=== PATIENT | male | born 1985 | race Caucasian/White ===

== ENCOUNTER 2018-12-15 19:48 | Emergency (ER) | payer BC ==
[2018-12-15 20:16] VITALS: BP 126/70
--- NOTE | 2018-12-15 21:44 | ER Document Report ---
ED Medical Screen (RME) - General Chief Complaint: Abscess Stated Complaint: NECK PAIN Time Seen by Provider: 12/15/18 21:41 Notes: Patient is a 33-year-old male who presents to the emergency department with a chief complaint of abscess to the left clavicle. Patient reports he has had a history of multiple cysts that needed to be removed. 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 Patient states his Tdap is not up-to-date. Patient states the abscess developed about 1 week ago and started out like a infected hair. Patient reports significant pain to the area. Patient is a heart transplant patient that occurred 16 years ago. Patient denies diabetes. Patient states he normally has these cut open and placed on Keflex for 10 days. TRAVEL OUTSIDE OF THE [place] IN LAST 30 DAYS: No - Related Data Allergies/Adverse Reactions: clarithromycin [From Biaxin] Allergy (Verified 12/15/18 21:40) codeine Allergy (Verified 12/15/18 21:40) NSAIDS (Non-Steroidal Anti-Inflamma Allergy (Verified 12/15/18 21:40) prochlorperazine [From Compazine] Allergy (Verified 12/15/18 21:39) Past Medical History - Social History Frequency of alcohol use: Rare Drug Abuse: None Renal/ Medical History: Reports: Hx Peritoneal Dialysis Past Surgical History: Reports: Hx Cardiac Surgery - heart transplant Physical Exam - Vital signs Vitals: Temp Pulse Resp BP Pulse Ox 99.2 F 86 17 126/70 H 99 12/15/18 20:14 12/15/18 20:14 12/15/18 20:14 12/15/18 20:14 12/15/18 20:14 - Respiratory Respiratory status: No respiratory distress Notes: 3 cm firm area of erythema to the left clavicle. No drainage. Course - Re-evaluation Re-evalutation: 12/15/18 21:43 Patient ultimately needs an I&D of the abscess to the left clavicle. I have greeted and performed a rapid initial assessment of this patient. A comprehensive ED assessment and evaluation of the patient, analysis of test results and completion of the medical decision making process will be conducted by additional ED providers. - Vital Signs Vital signs: Temp Pulse Resp BP Pulse Ox 99.2 F 86 17 126/70 H 99 12/15/18 20:14 12/15/18 20:14 12/15/18 20:14 12/15/18 20:14 12/15/18 20:14
== END 2018-12-16 00:05 | disposition left against medical advice (07) ==
LOC: EDBD → ER 19:48
DX: L02.219 Cutaneous abscess of trunk, unspecified (principal); Z86.14 Personal history of Methicillin resistant Staphylococcus aureus infection; Z88.1 Allergy status to other antibiotic agents; Z88.5 Allergy status to narcotic agent; Z88.8 Allergy status to other drugs, medicaments and biological substances; Z94.1 Heart transplant status; Z53.20 Procedure and treatment not carried out because of patient's decision for unspecified reasons
CPT/HCPCS: 99281